=== PATIENT | male | born 1960 | race Caucasian/White ===

== ENCOUNTER 2022-03-30 20:32 | Emergency (ER) | payer MEDICARE ==
[~2022-03-30] VITALS: Ht 177.8 cm; Wt 72.6 kg
== END 2022-03-31 00:36 | disposition home or self-care (01) ==
LOC: ER 20:32
DX: S61.211A Laceration without foreign body of left index finger without damage to nail, initial encounter (principal); W26.0XXA Contact with knife, initial encounter; I10 Essential (primary) hypertension; Z79.01 Long term (current) use of anticoagulants
CPT/HCPCS: 12002; 99282-25